=== PATIENT | male | born 2000 | race Caucasian/White ===

== ENCOUNTER 2020-02-06 08:07 | Outpatient (CLI) | payer BC, OTHER | END 2020-02-06 23:59 | disposition home or self-care (01) | LOC: CARD 08:07 | PROVIDERS: ATTEND Nurse Practitioner Family | DX: R56.9 Unspecified convulsions (principal) | CPT/HCPCS: 95819 ==

== ENCOUNTER → 2020-02-06 | Outpatient (CLI) | payer BC, OTHER ==
[~2020-02-06] MED LIST: GADOTERATE 7.5 MMOL/15 ML SYR ONE
== END | disposition home or self-care (01) ==
LOC: CFH 13:02
PROVIDERS: ATTEND Nurse Practitioner Family
DX: R56.9 Unspecified convulsions (principal)
CPT/HCPCS: 70553; A9575